=== PATIENT | female | born 1935 | race Caucasian/White ===

== ENCOUNTER 2017-05-18 19:26 | Inpatient (IN) | payer OTHER ==
[~2017-05-18] VITALS: Ht 165.1 cm; Wt 61.0 kg
--- NOTE | 2017-05-18 20:10 | NUR ---
PT BROUGHT IN BY AMBULANCE, PER ORGANIC PREPARATION ANALYST PT FELL AT HOME TWICE [place]. PT REMEMBERS THE FIRST FALL INCIDENT, BUT DOES NOT REMEMBER HOW SHE FELL THE SECOND TIME. PER MEDIC, PT FELL EARLIER THIS WEEK (WEDNESDAY) AND HAS BROKEN LEFT BROKEN RIBS. PT C/O BACK PAIN AND LEFT LEG PAIN. PT IS AAOX4, BREATHING EVEN AND UNLABORED. PT IN NO ACUTE DISTRESS.
--- NOTE | 2017-05-18 20:49 | NUR ---
PT DECLINED GURROLA CATH
--- NOTE | 2017-05-18 21:00 | NUR ---
MEDICATED PT PER E-MAR
--- NOTE | 2017-05-18 21:28 | NUR ---
PT RETURNED FROM CT
--- NOTE | 2017-05-18 22:05 | NUR ---
NOTIFIED DR. GARSIA THAT PT REFUSED GURROLA, DR. GARSIA STATED TO STRAIGHT CATH
--- NOTE | 2017-05-18 22:30 | NUR ---
PT RESTING WITH SON AT BEDSIDE. PT IN NO ACUTE DISTRESS.
[2017-05-18 22:31] LABS: UA SPECIFIC GRAVITY 1.015 (1.005-1.035); microscopic required? YES; urine erythrocyte TRACE (NEGATIVE)
[2017-05-18 22:38] LABS: BASOPHIL % 0.6 % (0-2); PLATELET COUNT 391 x10^3mcL (130-400)
[2017-05-18] MEDS ORDERED: MYSOLINE250 M1 PO (22:38)
[2017-05-18] MEDS ORDERED: IBUPROFEN800 MG PO (22:38)
[2017-05-18] MEDS ORDERED: TOPROL XL25 MG PO (22:39)
[2017-05-18] MEDS ORDERED: OXYCODONE5 M3 (22:39)
[2017-05-18 22:42] LABS: RED CELL DISTRIBUTION WIDTH 15.1 % (11.5-14.5)
[2017-05-18 23:03] LABS: CALCIUM 9.6 mg/dL (8.5-10.1); CARBON DIOXIDE 27.3 mmol/L (21-32); CHLORIDE SERUM 103 mmol/L (98-107); CREATININE SERUM 1.2 mg/dL (0.6-1.0); GLUCOSE SERUM 110 mg/dL (74-106); POTASSIUM SERUM 4.2 mmol/L (3.5-5.1); SODIUM SERUM 139 mmol/L (136-145)
[2017-05-18 23:07] LABS: ALKALINE PHOSPHATASE 82 U/L (46-116); ALT/SGPT 26 U/L (14-59); AST/SGOT 32 U/L (15-37); BILIRUBIN TOTAL 0.4 mg/dL (0.20-1.00); MAGNESIUM 1.8 mg/dL (1.8-2.4); PHOSPHOROUS 3.7 mg/dL (2.5-4.9); TOTAL PROTEIN, SERUM 7.2 g/dL (6.4-8.2)
--- NOTE | 2017-05-18 23:11 | NUR ---
CHANGED PT'S SHEET, PT TOLERATED
[2017-05-18 23:12] LABS: ALBUMIN 3.1 g/dL (3.4-5.0); CHOLESTEROL 259 mg/dL (<200); HDL CHOLESTEROL 64 mg/dL (40-60)
[2017-05-19] VITALS (7 sets, daily range): BP systolic 108–155; BP diastolic 39–56
--- NOTE | 2017-05-19 02:37 | NUR ---
GAVE REPORT TO CHAPARRO RIBERA, TO ASSUME CARE POST TRANSFER
--- NOTE | 2017-05-19 02:37 | NUR ---
ABBY DUTTA PHONE # [phone]
--- NOTE | 2017-05-19 02:47 | NUR ---
RECEIVED FROM ER,PUT IN ROOM 248 A AND MADE COMFORTABLE.PATIENT IS DROWSY FROM ER.HAD SUBLIMAZE,ATIVAN,HALDOL AND ZOFRAN,BREATHING EASY,TELE 27 SR.O2 AT 2 LITERS SAT 98%ADMISSION CARE GIVEN,HAS ARASION BRIDGE OF NOSE AND R ELBOW,NOTED FROM ER,NO PICTURE TAKEN,WILL PHOTOGRAPH AND PUT IN CHART.PATIENT ADMT DX WEAKNESS,TROP POSITIVE,AND UTI.HAD UA FROM ER,MANY BACTERIA,WAS STRAIGHT CATH,REFUSED GURROLA.PATIENT MAY HAVE DEMAENTIA,MULTIPLE FALLS HX.2 BROKEN RIBS FROM LAST WEEK'S FALL PER ER.WILL FOLLOW UP ADMIT ORDER.CALL LIGHT IN REACH.BED ALARM ON FOR SAFETY.
--- NOTE | 2017-05-19 03:00 | NUR ---
NEURO CHECK Q 4 HOURS.PATIENT REMAINS DROWSY R/T MEDS SHE GOT FROM ER,BREATHING EASY.VITAL SIGNS STABLE.
[2017-05-19 03:09] LABS: CHOLESTEROL/HDL RATIO 4.1
[2017-05-19 03:10] LABS: T3 TOTAL 0.88 ng/mL
[2017-05-19 03:11] LABS: FREE T4 0.82 ng/dL (0.76-1.46); FREE THYROXINE INDEX 2.5 ug/dL (1.4-4.5); T4(THYROXINE) 7.7 ug/dL (4.7-13.3)
--- NOTE | 2017-05-19 04:14 | NUR ---
PICTURE TAKEN BRIDGE OF NOSE ABRASION AND R ELBOW.
--- NOTE | 2017-05-19 05:04 | NUR ---
PATIENT INCONTINENT FOR NOW URINE,SINCE SHE BEEN DROWSY FROM ER.NS AT 40 CC/ HOUR.IV SITE R WRIST,PATENT.
--- NOTE | 2017-05-19 08:11 | NUR ---
RECEIVED PT FROM NIGHT NURSE IN NO ACUTE DISTRESS. PT ASLEEP IN BED. RESPIRATIONS EVEN AND UNLABORED ON RA. IVF INFUSING AT BEDSIDE. BED IN LOWEST POSITION. CALL LIGHT WITHIN REACH. WILL CONTINUE TO MONITOR.
--- NOTE | 2017-05-19 12:04 | NUR ---
NEURO CHECKS Q4 HR PER ORDER. ATTEMPTED TO WAKE UP PT, PT OPENED EYES FOR A MOMENT. PT UNABLE TO ANSWER QUESTIONS. PUPILS 2MM, BRISK RESPONSE TO LIGHT BILAT. ASKED PT TO SQUEEZE FINGERS WITH HANDS, PT SLOW TO SQUEEZE FINGERS. EQUAL STRENGTH. SON AT BEDSIDE. BED IN LOWEST POSITION. CALL LIGHT WITHIN REACH. WILL CONTINUE TO MONITOR.
--- NOTE | 2017-05-19 16:00 | NUR ---
NEURO CHECK Q4H ORDERED. PT AWAKE, AAOX4. BRISK PUPIL RESPONSE TO LIGHT, 2MM. EQUAL MOTOR STRENGTH. NO PROBLEMS NOTED WITH SWALLOWING. WILL CONTINUE TO MONITOR.
--- NOTE | 2017-05-19 18:30 | NUR ---
PT RESTING IN BED IN NO ACUTE DISTRESS. AAOX4, RESPIRATIONS EVEN AND UNLABORED ON RA. PT IS SLIGHTLY UNCOOPERATIVE WITH CARE. PICKING AT IV SITE, PULLS OUT NASAL CANNULA. IVF INFUSING AT BEDSIDE. BED IN LOWEST POSITION. CALL LIGHT WITHIN REACH. WILL ENDORSE TO ONCOMING SHIFT.
--- NOTE | 2017-05-19 19:50 | NUR ---
RECEIVED PT FROM PREVIOUS SHIFT. PT AAOX3. PERSON, PLACE AND WHY [facility] IS HERE. PERIODS OF CONFUSION. FORGETFUL. TELE #27. LUNGS CTA BILAT. DENIES SOB ON 2LNC. DENIES ANY CP/PRESSURE AT THIS TIME. PULSES PALPABLE BILAT. TRACE EDEMA NOTED TO BLE. BOWEL SOUNDS ACTIVE X4. GEN WEAKNESS. MULTIPLE ABRASIONS TO SKIN. R ELBOW, L WRIST, BRIDGE OF NOSE ALL OPEN TO AIR. IV TO LFA. PATENT AND INTACT. INFUSING WELL. BED IN LOWEST POSITION. CALL LIGHT WITHIN REACH. WILL CONTINUE TO MONITOR
--- NOTE | 2017-05-19 20:00 | NUR ---
NOTIFIED OF PATIENT FALL. TRIED GETTING OFF BEDSIDE COMMODE UNASSISTED AND FOUND BY DEPARTMENT SUPERVISOR SITTING ON THE FLOOR BEDSIDE. PT ASSISTED BACK INTO BED. DENIES HITTING HER HEAD. UPON INSPECTION PT STATES HAVING PAIN IN HER RIGHT HIP WHEN TOUCHED AND RIGHT SHOULDER. NOTIFIED. XRAY OF RIGHT HIP/ PELVIS/ SHOULDER ORDERED. WILL CONTINUE TO MONITOR
--- NOTE | 2017-05-19 22:00 | NUR ---
PT ORIENTED AT THIS TIME. DOES NOT REMEMBER HER FALL. NO COMPLAINTS OF PAIN AT THIS TIME. SPEECH CLEAR AND APPROPRIATE FOR SITUATION. HAND PINSETTER MECHANIC AUTOMATIC EVEN BILAT. DOES NOT FOLLOW DIRECTIONS FOR FOOT PINSETTER MECHANIC AUTOMATIC. NO FACIAL DROOP NOTED. PUPILS 3MM BRISK RESPONSE. WILL CONTINUE TO MONITOR
--- NOTE | 2017-05-20 00:22 | NUR ---
PT RESTING PEACEFULLY IN BED. NO COMPLAINTS OF PAIN OR DISCOMFORT. NO RESP DISTRESS NOTED AT THIS TIME. RESPIRATIONS EVEN AND UNLABORED. IV TO LFA PATENT AND INTACT. INFUSING WELL. BED IN LOWEST POSITION. CALL LIGHT WITHIN REACH. SIDERAILS UP X2 FOR SAFETY. BED ALARM ON WELL. WILL CONTINUE TO MONITOR
--- NOTE | 2017-05-20 04:27 | NUR ---
ATTEMPTED TO HELP FINISHING MANAGER WITH ORTHOSTATIC VITAL SIGNS. PT COULD ONLY TOLERATE SUPINE AND SITTING UP. PT COMPLAINING OF PAIN IN HIP AND SHOULDER BUT DOES NOT WANT MEDICATION. WHEN AROUSED PT ASKING WHERE SHE IS AND WHY SHE IS HERE. REORIENTED TO BOTH. ABLE TO COMPLY WITH COMMANDS. HAND INSULATION CUPOLA OPERATOR MODERATE BILAT. NO FACIAL DROOP NOTED. BED IN LOWEST POSITION. CALL LIGHT WITHIN REACH. WILL CONTINUE TO MONITOR
[2017-05-20 05:16] VITALS: BP 147/50
--- NOTE | 2017-05-20 06:06 | NUR ---
PT RESTING IN BED. AROUSABLE WHEN ENTERING ROOM. REMAINS CONFUSED ABOUT WHERE AND WHY SHE IS AT THE HOSPITAL. REORIENTED TO PLACE, AND SITUATION. RESPIRATIONS EVEN AND UNLABORED. DENIES SOB ON RA. PT STATES SHE HAS PAIN BUT REFUSED PAIN MEDS. DOES NOT TOLERATE STANDING AT ALL AND POSITION CHANGES REMAIN DIFFICULT. ASSISTANCE NEEDED WHEN CHANGING PATIENTS LINENS. PT DID NOT TOLERATE WELL. IV TO LFA REMAINS INTACT AND PATENT. INFUSING WELL. SIDE RAILS UP X2 FOR SAFETY. WILL ENDORSE CARE TO ONCOMING SHIFT NURSE
[2017-05-20 06:28] LABS: CALCIUM 8.6 mg/dL (8.5-10.1); CARBON DIOXIDE 24.7 mmol/L (21-32); CHLORIDE SERUM 106 mmol/L (98-107); CREATININE SERUM 0.9 mg/dL (0.6-1.0); GLUCOSE SERUM 100 mg/dL (74-106); POTASSIUM SERUM 3.8 mmol/L (3.5-5.1); SODIUM SERUM 141 mmol/L (136-145)
[2017-05-20 06:33] LABS: BASOPHIL % 0.3 % (0-2); PLATELET COUNT 309 x10^3mcL (130-400); RED CELL DISTRIBUTION WIDTH 14.7 % (11.5-14.5)
--- NOTE | 2017-05-20 07:32 | NUR ---
RECEIVED PT FROM NIGHT NURSE IN NO ACUTE DISTRESS. PT ASLEEP IN BED, RESPIRATIONS EVEN AND UNLABORED ON 2L VIA NC. IVF INFUSING AT BEDSIDE. BED ALARM ON. BED IN LOWEST POSITION. CALL LIGHT WITHIN REACH. WILL CONTINUE TO MONITOR.
[2017-05-20 08:44] VITALS: BP 156/75
[2017-05-20 10:51] VITALS: BP 106/69
--- NOTE | 2017-05-20 12:40 | NUR ---
PT EATING LUNCH IN BED IN NO ACUTE DISTRESS. AAOX4. RESPIRATIONS EVEN AND UNLABORED ON RA. IVF INFUSING AT BEDSIDE. BED IN LOWEST POSITION. CALL LIGHT WITHIN REACH. BED ALARM ON. WILL CONTINUE TO MONITOR.
[2017-05-20 13:42] VITALS: BP 155/79
[2017-05-20 14:52] VITALS: BP 155/79
[2017-05-20] MEDS ORDERED: LIPI10 PO (14:54)
[2017-05-20] MEDS ORDERED: BAY PO (14:54)
--- NOTE | 2017-05-20 17:08 | NUR ---
PT PICKED UP BY [facility] IN NO ACUTE DISTRESS. RESPIRATIONS EVEN AND UNLABORED ON RA. IV REMOVED INTACT, TELE REMOVED. CALLED [facility] AND GAVE REPORT TO NURSE JUANJOSE. DISCHARGE PACKET TRANSPORTED WITH PT. TRANSPORT CONSENT SIGNED AND IN CHART.
--- NOTE | 2017-05-20 19:10 | NUR ---
PHYSICAL THERAPY DAILY NOTES CO-SIGN All documentation done by the Floor Helper for 05/20/17 has been reviewed. I agree with the documentation. Reviewed/Co-Signed by: Tish Barnett, MIKIT Documentation Done by: Kody Clark, STEVE Patient ridge tx fairly, limited gai ridge, noted fall with nursing last night, but cleared to cont with PT. Cont with PT POC as ridge/safe.
== END 2017-05-20 17:12 | DRG 73 ==
LOC: ED 19:26 → DU 23:52
PROVIDERS: Emergency Medicine; ADMIT Family Medicine Sports Medicine
DX: G90.9 Disorder of the autonomic nervous system, unspecified (principal); N17.0 Acute kidney failure with tubular necrosis; E44.0 Moderate protein-calorie malnutrition; I24.8 Other forms of acute ischemic heart disease; N39.0 Urinary tract infection, site not specified; R55 Syncope and collapse; M94.0 Chondrocostal junction syndrome [Tietze]; E78.2 Mixed hyperlipidemia; F03.90 Unspecified dementia, unspecified severity, without behavioral disturbance, psychotic disturbance, mood disturbance, and anxiety; Z68.22 Body mass index [BMI] 22.0-22.9, adult; Z91.81 History of falling
CPT/HCPCS: 82962; 83880; 84439; 97110-GP; 97116-GP; 97530-GP; J0696; J1630; J2060; J2405; J3010; J7030; Q0092

== ENCOUNTER 2018-09-21 13:15 | Emergency (ER) | payer OTHER ==
[~2018-09-21] VITALS: Ht 157.5 cm; Wt 81.6 kg
[~2018-09-21 13:15] MED LIST: BAY PO; IBUPROFEN800 MG PO; LIPI10 PO; MYSOLINE250 M1 PO; OXYCODONE5 M3; TOPROL XL25 MG PO
[2018-09-21 13:24] VITALS: Ht 157.5 cm; Wt 81.6 kg
[2018-09-21 13:52] LABS: BASOPHIL % 0.5 % (0-2); PLATELET COUNT 349 x10^3mcL (130-400)
[2018-09-21 13:53] LABS: RED CELL DISTRIBUTION WIDTH 15.6 % (11.5-14.5)
[2018-09-21 14:11] LABS: CALCIUM 8.9 mg/dL (8.5-10.1); CARBON DIOXIDE 25.8 mmol/L (21-32); CHLORIDE SERUM 103 mmol/L (98-107); CREATININE SERUM 0.9 mg/dL (0.6-1.0); GLUCOSE SERUM 92 mg/dL (74-106); POTASSIUM SERUM 4.4 mmol/L (3.5-5.1); SODIUM SERUM 138 mmol/L (136-145)
[2018-09-21 14:15] LABS: ALKALINE PHOSPHATASE 94 U/L (46-116); ALT/SGPT 37 U/L (14-59); AST/SGOT 39 U/L (15-37); BILIRUBIN TOTAL 0.4 mg/dL (0.20-1.00); TOTAL PROTEIN, SERUM 7.3 g/dL (6.4-8.2)
[2018-09-21 14:16] LABS: ALBUMIN 2.8 g/dL (3.4-5.0)
[2018-09-21 14:37] LABS: UA SPECIFIC GRAVITY >=1.030 (1.005-1.035); microscopic required? YES; urine erythrocyte TRACE (NEGATIVE)
[2018-09-21 15:13] VITALS: BP 141/73
== END 2018-09-21 16:43 | disposition home or self-care (01) ==
LOC: ED 13:15
PROVIDERS: Emergency Medicine
DX: R53.1 Weakness (principal); I10 Essential (primary) hypertension
CPT/HCPCS: 36415

== ENCOUNTER 2018-10-01 12:37 | Emergency (ER) | payer OTHER ==
[~2018-10-01] VITALS: Ht 170.2 cm; Wt 77.1 kg
[2018-10-01 12:38] VITALS: Ht 170.2 cm; Wt 77.1 kg
[2018-10-01 12:44] VITALS: BP 104/67
[2018-10-01 13:03] LABS: PLATELET COUNT 213 x10^3mcL (130-400)
[2018-10-01 13:06] LABS: BASOPHIL % 2.4 % (0-2); RED CELL DISTRIBUTION WIDTH 17.3 % (11.5-14.5)
[2018-10-01 13:18] LABS: rbc morphology (normal/abnorm) ABNORMAL (NORMAL)
[2018-10-01 13:27] LABS: ALKALINE PHOSPHATASE 89 U/L (46-116); ALT/SGPT 111 U/L (14-59); AST/SGOT 174 U/L (15-37); CALCIUM 8.1 mg/dL (8.5-10.1); CARBON DIOXIDE 15.9 mmol/L (21-32); CHLORIDE SERUM 115 mmol/L (98-107); CHOLESTEROL 189 mg/dL (<200); CREATININE SERUM 1.6 mg/dL (0.6-1.0); GLUCOSE SERUM 279 mg/dL (74-106); SODIUM SERUM 148 mmol/L (136-145); TOTAL PROTEIN, SERUM 5.2 g/dL (6.4-8.2)
[2018-10-01 13:28] LABS: ALBUMIN 1.7 g/dL (3.4-5.0)
== END 2018-10-01 15:45 | disposition expired ==
LOC: ED 12:37
PROVIDERS: Specialist
DX: I46.9 Cardiac arrest, cause unspecified (principal); I10 Essential (primary) hypertension; Z98.890 Other specified postprocedural states
CPT/HCPCS: 31500; 36415; G0480